=== PATIENT | female | born 1985 | race Caucasian/White ===

== ENCOUNTER 2016-11-26 08:50 | Inpatient (IN) | payer OTHER ==
[2016-11-26] VITALS (7 sets, daily range): BP systolic 131–162; BP diastolic 68–85
[2016-11-26] MEDS: PRENATAL VITAMIN TAB PO SCH ×2 (09:00→13:12)
[2016-11-26] MEDS: DOCUSATE SODIUM 100 MG CAP PO SCH ×2 (09:00→21:00)
[2016-11-26] MEDS ORDERED: METHYLERGONOVINE MALEATE 0.2 MG/ML VIAL (J2210) IM PRN (09:30)
[2016-11-26] MEDS ORDERED: DIBUCAINE 1% OINTMENT 30GM TOP PRN (09:30)
[2016-11-26] MEDS ORDERED: ONDANSETRON 4MG/2ML VIAL (J2405) IV PRN (09:30)
[2016-11-26] MEDS ORDERED: LIDOCAINE 1% MDV INJ 50 ML VIAL INFIL ONE (09:30)
[2016-11-26] MEDS ORDERED: ACETAMINOPHEN 500 MG TAB PO PRN (09:30)
[2016-11-26] MEDS ORDERED: RHOGAM 300 MCG (1500 IU) INJ (J2790) IM SCH (09:30)
[2016-11-26] MEDS ORDERED: PROMETHAZINE 25 MG TAB PO PRN (09:30)
[2016-11-26] MEDS ORDERED: MEASLES,MUMPS,RUBELLA VACCINE INJ (MMR-II) (90707) SC SCH (09:30)
[2016-11-26] MEDS: IBUPROFEN 800 MG TAB PO PRN ×2 (10:42→21:01)
[2016-11-27 05:53] VITALS: BP 110/59
[2016-11-27 07:02] LABS: MEAN CORPUSCULAR HEMOGLOBIN 30.2 pg (27.0-33.0); MEAN CORPUSCULAR VOLUME 88.6 fl (80.0-96.0); RED CELL DISTRIBUTION WIDTH 13.2 % (11.5-14.5); WHITE BLOOD COUNT 8.5 K/mm3 (4.0-10.0)
[2016-11-27] MEDS: IBUPROFEN 800 MG TAB PO PRN ×2 (08:31→18:30)
[2016-11-27] MEDS: DOCUSATE SODIUM 100 MG CAP PO SCH ×2 (08:31→21:00)
[2016-11-27 18:24] VITALS: BP 119/73
[2016-11-28 05:42] VITALS: BP 121/64
--- NOTE | 2016-11-28 07:53 | IPNPDOC ---
Text Note Date of Service The patient was seen on 11/28/16. NOTE PPD#2 s/p S: December is doing well. Minimal pain, lochia minimal, voiding spontaneously, tolerating a regular diet, ambulating without difficulty. No f/c/n/v/JASON. Breast feeding without issue. Undecided for contraception O: normotensive, nml HR, afebrile H: RRR no m/g/r L: CTA b/l no w/c/r/r Abd: soft, appropriately tender, and fundus firm at U-1, nontender Ext: no c/c/e A/P: December is a 31yo S/p at home, doing well on PPD#2. Hemodynamically stable, afebrile, good pain control. -Discharge to home with follow-up in OB clinic in 6 weeks -Given home meds for discharge: motrin, tylenol and colace Dr. Rosalia Willson VS,[place], I+O VS, Fishbone, I+O Vital Signs Date Time Temp Pulse Resp B/P Pulse Ox O2 Delivery O2 Flow Rate FiO2 11/28/16 05:42 97.9 64 18 121/64 11/27/16 05:53 95 Room Air ROSALIA WILLSON MD Nov 28, 2016 07:53
[2016-11-28] MEDS: PRENATAL VITAMIN TAB PO SCH (08:18)
[2016-11-28] MEDS: DOCUSATE SODIUM 100 MG CAP PO SCH (08:18)
[2016-11-28] MEDS: IBUPROFEN 800 MG TAB PO PRN (08:22)
[2016-11-28] MEDS ORDERED: COLA100C PO (08:27)
[2016-11-28] MEDS ORDERED: IBUP-1114 PO (08:28)
[2016-11-28] MEDS ORDERED: ACET50TA PO (08:28)
[2016-11-28] MEDS ORDERED: PRENTAB9 PO (08:28)
--- NOTE | 2016-11-28 18:23 | IPN ---
DATE: 11/28/2016 This patient requested circumcision of her male . After discussing the risks and benefits of circumcision, the medical and the nonmedical indications, the penile block and the aftercare, expressed understanding of the aftercare and the penile block, signed and witnessed the consent form and we await the clearance by the shopping inspector.
== END 2016-11-28 12:25 | disposition home or self-care (01) | DRG 769 ==
LOC: M LDI 08:50 → M OBS 11:22
PROVIDERS: ADMIT Obstetrics & Gynecology; ATTEND Obstetrics & Gynecology
PROC: 0KQM0ZZ Repair Perineum Muscle, Open Approach (ICD-10-PCS; principal; 2016-11-26)
DX: O70.1 Second degree perineal laceration during delivery (principal); Z3A.40 40 weeks gestation of pregnancy